=== PATIENT | male | born 1965 | race Caucasian/White ===

== ENCOUNTER 2022-09-28 06:34 | Day surgery (SDC) | payer OTHER ==
[~2022-09-28] VITALS: Ht 162.6 cm; Wt 80.3 kg
[~2022-09-28 06:34] MED LIST: CARDURA XL4 MG PO; CRESTOR10 MG PO; IRBESARTAN-HCT1 EAC1 PO; JANUMET 50-5001 EACH PO; PROCAR PO
== END 2022-09-28 13:50 | disposition home or self-care (01) ==
LOC: CIR.AMB 06:34
PROVIDERS: ATTEND Orthopaedic Surgery
DX: M75.122 Complete rotator cuff tear or rupture of left shoulder, not specified as traumatic (principal); M75.22 Bicipital tendinitis, left shoulder; M24.112 Other articular cartilage disorders, left shoulder; I10 Essential (primary) hypertension; Z20.822 Contact with and (suspected) exposure to COVID-19